=== PATIENT | female | born 2000 | race Caucasian/White ===

== ENCOUNTER 2023-03-07 12:50 | Emergency (ER) | payer OTHER ==
[2023-03-07 14:07] VITALS: BP 127/79
--- NOTE | 2023-03-07 14:24 | ED Physician Documentation ---
History of Present Illness - Stated complaint Stated Complaint: SYNCOPE - Chief complaint Chief Complaint: Neuro - Additonal information Additional information: 22-year-old individual, prefers they/them presents to the emergency department f or syncope. They are in the [employer] and work as a airframe and powerplant mechanic. They report that they stopped taking the fluoxetine 4 days ago, initially because they simply missed 1 dose but then decided not to resume taking it. They do have a history of anxiety and depression and they do feel that the anxiety is worse now after stopping the fluoxetine. They also have not eaten much today. Patient denies chest pain or shortness of air. She had no orthostasis for paramedics. I did offer CBC, electrolytes IV fluids, chest x-ray but they declined all of that. They feel foolish being in the ER and prefer to be discharged home. They do not have any thoughts of self-harm or harm to others. They deny any previous history of syncope. They take fluoxetine only. They are not on any hormones. No recent travel. No unilateral leg swelling. No pleuritic chest pain. No history of DVT or cancer. Review of Systems Constitutional: reports: Reviewed and negative Nose: reports: Reviewed and negative Cardiac: reports: Reviewed and negative Respiratory: reports: Reviewed and negative Neurologic: reports: Syncope PD PAST MEDICAL HISTORY - Present Medications Home Medications: Ambulatory Orders Medication Instructions Recorded Confirmed Fluoxetine HCl 10 mg PO DAILY 03/07/23 03/07/23 - Allergies Allergies/Adverse Reactions: Allergies Allergy/AdvReac Type Severity Reaction Status Date / Time No Known Drug Allergies Allergy Verified 03/07/23 12:55 PD ED PE NORMAL - General General: Alert and oriented X 3, No acute distress - HEENT HEENT: PERRL - Neck Neck: Supple, no meningeal sign, No adenopathy - Cardiac Cardiac: RRR, No murmur - Respiratory Respiratory: No respiratory distress, Clear bilaterally - Abdomen Abdomen: Normal bowel sounds, Soft - Derm Derm: Normal color, Warm and dry - Extremities Extremities: No deformity - Neuro Neuro: Alert and oriented X 3, nremt 2-12 intact Eye Opening: Spontaneous Motor: Obeys Commands Verbal: Oriented GCS Score: 15 Results - Vitals Vitals: Vital Signs - 24 hr 03/07/23 03/07/23 03/07/23 12:51 14:06 14:08 Temperature 36.8 C Heart Rate 104 H 99 94 Respiratory 20 16 16 Rate Blood Pressure 123/70 127/79 127/79 O2 Saturation 98 99 97 Oxygen O2 Source Room air - EKG (time done) 1300 EKG releavant findings:: EKG personally interpreted by author of this note. Relevant findings are: Rate: Rate (enter#) (105) Rhythm: Sinus tachycardia [place]: Normal Intervals: Normal AR QRS: Normal Ischemia: Normal ST segments Compare to prior EKG: Old EKG unavailable Computer interpretation: Agree with computer PD Medical Decision Making - ED course Complexity details: d/w patient ED course: 22-year-old female, active duty [employer], prefers to go by they then presents emergency department after syncopal episode. They abruptly discontinued their fluoxetine 4 days ago. They did not eat breakfast today and while at work fainted. They were not orthostatic for EMS. Here in the emergency department after initial history and exam the patient declined any blood work, chest x-ray or further evaluation. Stated she felt foolish being here. Clinically she has the Capacity to make these decisions. She presents no danger to herself or others. I have encouraged her to resume taking the fluoxetine at the standard dose which she reports that she will. She was offered a sandwich and something to drink which she states made her feel better. At this time she is discharged home in stable condition. She was advised to return to the ER should her symptoms fail to improve. Departure - Departure Disposition: 01 Home, Self Care Clinical Impression: History of anxiety disorder Syncope Qualifiers: Syncope type: unspecified Qualified Code(s): R55 - Syncope and collapse Condition: Stable Record reviewed to determine appropriate education?: Yes Comments: Ochoa you came to the emergency department today because you fainted at work. You do report suddenly stopping her fluoxetine 4 days ago. This can worsen your anxiety and PTSD. I recommend you resume taking it. You declined any medical work-up here in the emergency department including IV, blood draw and IV fluids. I encouraged her to follow closely with [facility]. You are not to return to work today. Return sooner to the ER if you have any worsening symptoms.
[2023-03-07 14:45] LABS: BILIRUBIN,URINE NEGATIVE (NEGATIVE); GLUCOSE, URINE (UA) NEGATIVE (NEGATIVE); KETONES,URINE (UA) NEGATIVE (NEGATIVE); LEUKOCYTE ESTERASE, URINE NEGATIVE (NEGATIVE); NITRITE,URINE POSITIVE (NEGATIVE); OCCULT BLOOD,URINE NEGATIVE (NEGATIVE); PROTEIN,URINE NEGATIVE (NEGATIVE); UROBILINOGEN,URINE 0.2 (NORMAL) E.U./dL (NORMAL)
[2023-03-07 14:48] LABS: CLARITY,URINE SL. CLOUDY (CLEAR); HCG UR QUAL NEGATIVE
[2023-03-07 14:51] LABS: BACTERIA,URINE Many /HPF (None Seen); RBC,URINE 0-5 /HPF (0-5); SQUAMOUS EPITHELIAL CELL,UR FEW Squamous (<= Few); WBC,URINE 0-3 /HPF (0-5)
== END 2023-03-07 14:42 | disposition home or self-care (01) ==
LOC: ED 12:50
DX: R55 Syncope and collapse (principal); F41.9 Anxiety disorder, unspecified
CPT/HCPCS: 80053; 81001; 81003; 81025; 83690; 85025; 87086; 87181; 93005; 99283; 99284